=== PATIENT | male | born 1975 | race Hispanic/Latino ===

== ENCOUNTER 2018-03-27 10:44 | Emergency (ER) | payer SELFPAY ==
[2018-03-27] MEDS ORDERED: Adacel (T-DAP) 0.5 ML VIAL ONE (12:28)
[2018-03-27] MEDS ORDERED: Lidocaine 1% (PF) 30 ML VIAL ONE (13:03)
[2018-03-27] MEDS ORDERED: Bacitracin Zinc 1 Packet ONE (13:44)
== END 2018-03-27 13:52 | disposition home or self-care (01) ==
LOC: ERS 10:44
DX: S51.812A Laceration without foreign body of left forearm, initial encounter (principal); W25.XXXA Contact with sharp glass, initial encounter
CPT/HCPCS: 12002; 90715; J2001